=== PATIENT | female | born 1995 | race African-American/Black ===

== ENCOUNTER 2024-04-15 15:28 | Emergency (ER) | payer OTHER ==
[2024-04-15 15:39] VITALS: BP 146/93; O2SAT 100
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
--- NOTE | 2024-04-15 16:47 | CT Report ---
PROCEDURE: Lumbar Spine WO INDICATIONS: back inj TECHNIQUE: Noncontrast 3 mm thick sections acquired from the T12 level to the sacrum. Sagittal and coronal refo rmats were constructed. For radiation dose reduction, the following was used: automated exposure co ntrol, adjustment of mA and/or kV according to patient size. COMPARISON: None. FINDINGS: Image quality: Excellent. Bones: There is normal bony alignment. No acute vertebral body compression fractures. No suspiciou s lytic or blastic bony lesions. Central spinal caliber is of normal overall caliber. No pars defec ts. No significant degenerative changes. There is mildly displaced fracture of the right transverse process of L2. Soft tissues: No retroperitoneal masses or hematomas. Visualized aorta is normal in caliber. IMPRESSION: Mildly displaced fracture of the right transverse process of L2. Reviewed by: Nixon Larry MD on 04/15/2024 4:46 PM PDT Approved by: Nixon Larry MD on 04/15/2024 4:46 PM PDT Station ID: [id number]
== END 2024-04-15 16:46 | disposition home or self-care (01) ==
LOC: ED 15:28
DX: S32.029A Unspecified fracture of second lumbar vertebra, initial encounter for closed fracture (principal); W06.XXXA Fall from bed, initial encounter; Y93.89 Activity, other specified; Y92.003 Bedroom of unspecified non-institutional (private) residence as the place of occurrence of the external cause
CPT/HCPCS: 99284

== ENCOUNTER 2024-06-16 09:31 | Outpatient (CLI) | payer OTHER ==
[2024-06-16 12:15] LABS: BASOPHILS % (AUTO) 0.4 %; EOSINOPHILS # (AUTO) 0.1 10^3/uL (0.0-0.7); EOSINOPHILS % (AUTO) 1.3 %; HCT - HEMATOCRIT 40.3 % (37.0-47.0); HGB - HEMOGLOBIN 13.2 g/dL (12.0-16.0); LYMPHOCYTES # (AUTO) 1.2 10^3/uL (1.5-3.5); LYMPHOCYTES % (AUTO) 24.4 %; MEAN CORPUSCULAR HGB CONC 32.8 g/dL (32.0-36.0); MEAN CORPUSCULAR VOLUME 85.4 fL (81.0-99.0); MEAN PLATELET VOLUME 11.1 fL (7.9-10.8); MONOCYTES # (AUTO) 0.5 10^3/uL (0.0-1.0); MONOCYTES % (AUTO) 11.1 %; NEUTROPHILS % (AUTO) 62.6 %; PLT - PLATELET COUNT 253 10^3/uL (130-450); RED BLOOD COUNT 4.72 10^6/uL (4.20-5.40); RED CELL DISTRIBUTION WIDTH 12.8 % (12.0-15.0); WHITE BLOOD COUNT 4.8 x10^3/uL (4.8-10.8)
[2024-06-16 12:59] LABS: ALBUMIN 4.5 g/dL (3.2-5.5); ALKALINE PHOSPHATASE 57 IU/L (42-121); ALT ALANINE AMINOTRANSFERASE 20 IU/L (10-60); AST ASPARTATE AMINOTRANSFERASE 17 IU/L (10-42); BILIRUBIN,TOTAL 0.7 mg/dL (0.2-1.0); BUN - BLOOD UREA NITROGEN 14 mg/dL (6-20); CALCIUM 9.5 mg/dL (8.5-10.3); CARBON DIOXIDE - CO2 27 mmol/L (21-32); CHLORIDE 107 mmol/L (101-111); CHOL/HDL RATIO 3.1 (<4.4); CHOLESTEROL 171 mg/dL; CREATININE 0.7 mg/dL (0.6-1.3); GFR - MDRD 119 (>89); GLUCOSE 83 mg/dL (74-104); HDL CHOLESTEROL 56 mg/dL; LDL CHOLESTEROL,CALCULATED 105 mg/dL; LDL/HDL RATIO 1.9 (<4.4); POTASSIUM 4.2 mmol/L (3.5-4.5); SODIUM 139 mmol/L (135-145); TOTAL PROTEIN 6.8 g/dL (6.4-8.9); TRIGLYCERIDES 48 mg/dL; VLDL CHOLESTEROL 10 mg/dL
[2024-06-16 13:08] LABS: THYROID STIMULATING HORMONE 1.35 uIU/mL (0.34-5.60)
== END 2024-06-16 09:32 | disposition home or self-care (01) ==
LOC: LAB.N 09:31
PROVIDERS: ATTEND Physician Assistant
DX: N92.6 Irregular menstruation, unspecified (principal); Z13.9 Encounter for screening, unspecified
CPT/HCPCS: 36415; 80053; 80061; 83721; 84146; 84443; 85025